=== PATIENT | male | born 1990 | race Caucasian/White ===

== ENCOUNTER 2018-06-07 08:13 | Emergency (ER) | payer SELFPAY ==
[~2018-06-07] VITALS: Ht 177.8 cm; Wt 100.0 kg
[2018-06-07] MEDS ORDERED: TORADOL PO (09:07)
[2018-06-07] MEDS ORDERED: AMOXICILLIN500 MG PO (09:07)
[2018-06-07 09:14] VITALS: BP 144/86
== END 2018-06-07 09:20 | disposition home or self-care (01) | DRG 159 ==
LOC: ED 08:13
DX: K02.9 Dental caries, unspecified (principal); K04.7 Periapical abscess without sinus